=== PATIENT | male | born 1965 | race Caucasian/White ===

== ENCOUNTER 2021-08-25 08:45 | Inpatient (IN) | payer MEDICARE, MEDICAID ==
[~2021-08-25] VITALS: Ht 182.9 cm; Wt 105.0 kg
[~2021-08-25 08:45] MED LIST: ATI1T PO; ATOR20TA PO; BUDE10.24 IH; COU3T PO; DIPH-423 PO; EFAV600T PO; GUAN1TAB PO; LAMI1TAB40 PO; LISI20TA28 PO; LORA1TAB PO; MESA1.2T PO; NIFE-33 PO; OMEP-84 PO; TEN1T CORPAK
[2021-08-25] MEDS ORDERED: diltiazem-NS 100mg/100ml 100 ML IV ONE (09:05)
[2021-08-25] MEDS ORDERED: aspirin 81mg tab.chew PO ONE (09:05)
[2021-08-25] MEDS ORDERED: diltiazem 5mg/ml 5ml inj. IV ONE (09:05)
[2021-08-25] MEDS ORDERED: adenosine 3mg/ml 2ml vial IV ONE ×2 (09:15→09:25)
[2021-08-25] MEDS ORDERED: ondansetron/PF 4mg/2ml inj IV ONE (09:20)
--- NOTE | 2021-08-25 09:21 | NUR ---
Filiberto kennedy per Dr. Tee verbal orders.
--- NOTE | 2021-08-25 09:25 | NUR ---
Patient's left hand above IV site red with small round hives up to wrist, Dr Moya at bedside to assess hand, no additional orders at this time, IV diltiazem drip stopped per MD (see EMAR).
[2021-08-25] MEDS ORDERED: etomidate 2mg/ml inj. IV ONE (09:30)
--- NOTE | 2021-08-25 09:30 | NUR ---
Adenosine 12 mg administered IV once at 0928, Dr. Moya in room during administeration. Radha RN and Tatiana RN administered medication. No change in heart rate, Rate rate 189 beats/min. Dr. Moya gave verbal order to place for etomidate 15 mg IV once for synchronized cardioversion. CPR pads placed per manufacturers specifications at 0900.
--- NOTE | 2021-08-25 09:41 | NUR ---
150 J synchronized cardioversion, charging Shock at 0942 Rate: 61 beats/min Addendum: 08/25/21 at 1007 by NATALIE See intra moderate sedation charting for further procedure information.
[2021-08-25] MEDS ORDERED: LORazepam 2 mg/ml vial IV ONE (09:45)
--- NOTE | 2021-08-25 09:45 | NUR ---
Patient became aggitated and upable to form coherent sentences, just moaning. Patient pulling at lines and thrashing on gurnery. Dr. Moya gave verbal order to administer `1.5 mg IV ativan once now. Unable to obtain a good oxygen saturation on patient due to aggitation. Per RT end tidal at 22. Patient placed on a NRB at 15 L per min. Patient had fought turning himself to the left side stating, "I can't breath". Dr. Moya and Will EMT adjusted patient on zaid to assist with positioning onto back and elevating the head of the bed. Addendum: 08/25/21 at 1015 by NATALIE At time of aggitation patient was pale and had lip cyanosis.
[2021-08-25] MEDS ORDERED: haloperidol lactate 5mg/ml inj IM ONE (09:50)
--- NOTE | 2021-08-25 09:50 | NUR ---
At 0947, Patient was given ativan as prescibed. Patient comfortable appearing at this time, Patients skin is normal/pink, warm and dry. Patient is breathing easily on the NRB at 15L with a oxygen saturdation of 96%. Will continue to monitor patients progress.
[2021-08-25] MEDS ORDERED: normal saline 1000ml 1,000 ML IVB ONE (10:00)
[2021-08-25 10:57] LABS: EOSINOPHILS % (AUTO) 0 % (0-6); LYMPHOCYTES # (AUTO) 0.7 X10'3 (1.1-4.8); MONOCYTES # (AUTO) 0.6 X10'3 (0-0.9)
[2021-08-25 11:02] LABS: BASOPHILS % (AUTO) 0.2 % (0-1); HEMATOCRIT 42.7 % (42.0-52.0); HEMOGLOBIN 13.6 g/dl (14.0-17.9); LYMPHOCYTES % (AUTO) 7.5 % (21-51); MEAN CORPUSCULAR HEMOGLOBIN 32.7 PG (27.0-31.0); MEAN CORPUSCULAR HGB CONC 31.8 g/dL (33.0-36.5); MEAN CORPUSCULAR VOLUME 102.9 FL (78-98); MEAN PLATELET VOLUME 7.5 FL (7.4-10.4); NEUTROPHILS # (AUTO) 7.7 X10'3 (1.8-7.7); NEUTROPHILS % (AUTO) 85.3 % (42-75); PLATELET COUNT 324 X10'3 (140-440); RED BLOOD COUNT 4.15 X10'6 (4.70-6.10); RED CELL DISTRIBUTION WIDTH 14.3 % (11.5-14.5); WHITE BLOOD COUNT 9.1 X10'3 (4.5-11.0)
[2021-08-25 11:51] LABS: ANION GAP 17 (8-16); BLOOD UREA NITROGEN 72 MG/DL (7-18); BUN/CREATININE RATIO 31.9 (5.4-32.0); CALCIUM 8.6 MG/DL (8.5-10.1); CHLORIDE 91 MMOL/L (99-107); CREATININE 2.26 MG/DL (0.60-1.10); GLUCOSE 119 MG/DL (70-104); POTASSIUM 5.4 MMOL/L (3.5-5.1); SODIUM 126 MMOL/L (135-145); TOTAL CARBON DIOXIDE 18.2 MMOL/L (24-32); eGFR 30 ML/MIN
[2021-08-25 11:52] LABS: ALANINE AMINOTRANSFERASE 1112 U/L (12-78); ALBUMIN 3.2 G/DL (3.4-5.0); ALKALINE PHOSPHATASE 76 IU/L (46-116); ASPARTATE AMINO TRANSFERASE 917 U/L (10-37); BILIRUBIN,TOTAL 3.4 MG/DL (0.1-1.0); MAGNESIUM 2.8 MG/DL (1.5-2.4); TOTAL PROTEIN 6.4 G/DL (6.4-8.2)
[2021-08-25] MEDS ORDERED: ondansetron/PF 4mg/2ml inj IV PRN (13:35)
[2021-08-25] MEDS ORDERED: HYDROcodone/acetaminophen 10/325mg tab PO PRN (13:35)
[2021-08-25] MEDS ORDERED: HYDROcodone/acetaminophen 5mg/325mg tablet PO PRN (13:35)
[2021-08-25] MEDS ORDERED: morphine 2 MG/ML inj. syringe IV PRN ×2 (13:35)
[2021-08-25] MEDS ORDERED: magnesium hydroxide 30ml (MOM) UD suspension PO PRN (13:35)
[2021-08-25] MEDS ORDERED: acetaminophen 325mg tablet PO PRN ×2 (13:35)
[2021-08-25] MEDS ORDERED: mag hydrox/Alum hydrox/simeth 30ml oral suspension PO PRN (13:35)
[2021-08-25 13:36] LABS: TROPONIN I 0.08 NG/ML (0.0-0.05)
[2021-08-25] MEDS: furosemide 20 MG/2 ML vial IV SCH ×2 (14:07→20:12)
[2021-08-25 14:09] LABS: D-DIMER 6.52 MG/L FEU (0-0.50)
[2021-08-25] MEDS ORDERED: WARF-55 PO (17:37)
[2021-08-25] MEDS ORDERED: ESCI20TA39 PO (17:37)
[2021-08-25] MEDS ORDERED: AZEL6DRO5 EACHEYE (17:37)
[2021-08-25] MEDS ORDERED: ESCI-8 PO (17:37)
[2021-08-25] MEDS ORDERED: EMTR1TAB18 PO (17:37)
[2021-08-25] MEDS ORDERED: ERGO500056 PO (17:37)
[2021-08-25] MEDS ORDERED: AMLO10TA13 PO (17:37)
[2021-08-25] MEDS ORDERED: DOLU50TA PO (17:37)
[2021-08-25] MEDS ORDERED: ALBU18HF2 IH (17:42)
[2021-08-25] MEDS ORDERED: albuterol 2.5 MG/3 ML nebule NEB PRN (18:00)
--- NOTE | 2021-08-25 18:10 | NUR ---
Dr Paz in to assess patient at this time. Patient arousable to tactile stimulation, no signs of distress noted, answering questions appropriately, calm and cooperative. MD aware INR >8.0, D Dimer 6.52, K 5.4, Creat 2.26, Elevated troponin, BNP 01864. Per MD okay to repeat labs in AM, no other orders at this time.
[2021-08-25] MEDS: EYE EACHEYE SCH (20:00)
[2021-08-25] MEDS: AZELASTINE 0.05% EACHEYE SCH (20:00)
[2021-08-25] MEDS: docusate sod 100mg capsule PO SCH (20:12)
[2021-08-25 20:30] VITALS: BP 144/88
[2021-08-25] MEDS ORDERED: lisinopril 20mg tablet PO SCH (21:00)
[2021-08-25 22:00] VITALS: BP 117/69
[2021-08-25] MEDS ORDERED: furosemide 40mg/4ml inj IV ONE (22:45)
[2021-08-25] MEDS: DOBUTamine-DoBUTrex 500mg/D5W 250 ML IV SCH (23:42)
[2021-08-26] VITALS (10 sets, daily range): BP systolic 83–118; BP diastolic 48–69
--- NOTE | 2021-08-26 06:15 | NUR ---
Patient in room PCU 3024. I have received report from Kaylan PLAZA and had the opportunity to ask questions and assume patient care.
[2021-08-26 06:36] LABS: BASOPHILS % (AUTO) 0.4 % (0-1); EOSINOPHILS % (AUTO) 0.5 % (0-6); HEMATOCRIT 39.2 % (42.0-52.0); HEMOGLOBIN 13.1 g/dl (14.0-17.9); LYMPHOCYTES # (AUTO) 1.3 X10'3 (1.1-4.8); LYMPHOCYTES % (AUTO) 13.6 % (21-51); MEAN CORPUSCULAR HGB CONC 33.4 g/dL (33.0-36.5); MEAN CORPUSCULAR VOLUME 98.8 FL (78-98); MEAN PLATELET VOLUME 6.9 FL (7.4-10.4); MONOCYTES # (AUTO) 0.7 X10'3 (0-0.9); MONOCYTES % (AUTO) 7.3 % (2-12); NEUTROPHILS # (AUTO) 7.4 X10'3 (1.8-7.7); NEUTROPHILS % (AUTO) 78.2 % (42-75); PLATELET COUNT 293 X10'3 (140-440); RED BLOOD COUNT 3.97 X10'6 (4.70-6.10); RED CELL DISTRIBUTION WIDTH 14.2 % (11.5-14.5); WHITE BLOOD COUNT 9.5 X10'3 (4.5-11.0)
[2021-08-26 07:12] LABS: ANION GAP 6 (8-16); BLOOD UREA NITROGEN 53 MG/DL (7-18); BUN/CREATININE RATIO 32.7 (5.4-32.0); CALCIUM 8.2 MG/DL (8.5-10.1); CHLORIDE 96 MMOL/L (99-107); CHOL/HDL RATIO 9.9 (0.00-4.99); CHOLESTEROL 119 MG/DL (0-200); CREATININE 1.62 MG/DL (0.60-1.10); GLUCOSE 81 MG/DL (70-104); HDL CHOLESTEROL 12 MG/DL (35-60); LDL CHOLESTEROL 93 MG/DL (50-100); POTASSIUM 4.1 MMOL/L (3.5-5.1); TOTAL CARBON DIOXIDE 33.6 MMOL/L (24-32); TRIGLYCERIDES 120 MG/DL (20-135); eGFR 44 ML/MIN
[2021-08-26 07:28] LABS: SODIUM 136 MMOL/L (135-145)
[2021-08-26] MEDS: TENOFOVIR ALAFENAMIDE PO SCH (08:00)
[2021-08-26] MEDS: EYE EACHEYE SCH ×2 (08:00→20:00)
[2021-08-26] MEDS: AZELASTINE 0.05% EACHEYE SCH ×2 (08:00→20:00)
[2021-08-26] MEDS ORDERED: losartan 25mg tablet PO SCH (08:00)
[2021-08-26] MEDS ORDERED: enoxaparin 40mg/0.4ml syringe SUBCUT SCH (08:00)
[2021-08-26] MEDS: DOLUTEGRAVIR 50 MG PO SCH (08:00)
[2021-08-26] MEDS: EMTRICITABINE PO SCH (08:00)
[2021-08-26] MEDS ORDERED: carVEDilol 3.125mg tablet PO SCH (08:00)
[2021-08-26] MEDS ORDERED: non-formulary drug (Escitalopram Oxalate 1 TAB) PO SCH (08:00)
[2021-08-26] MEDS ORDERED: amLODIPine 5mg tablet PO SCH (08:00)
[2021-08-26 08:51] LABS: ALANINE AMINOTRANSFERASE 913 U/L (12-78); ALBUMIN/GLOBULIN RATIO 0.9 (1.1-1.5); ALKALINE PHOSPHATASE 73 IU/L (46-116); ASPARTATE AMINO TRANSFERASE 622 U/L (10-37); BILIRUBIN,DIRECT 1.8 MG/DL (0-0.3); BILIRUBIN,TOTAL 3.1 MG/DL (0.1-1.0); TOTAL PROTEIN 6.2 G/DL (6.4-8.2)
[2021-08-26] MEDS: furosemide 20 MG/2 ML vial IV SCH ×2 (09:18→20:00)
[2021-08-26] MEDS: atorvastatin 20mg tablet PO SCH (09:18)
[2021-08-26] MEDS: pantoprazole 40mg Tablet.DR PO SCH (09:19)
[2021-08-26] MEDS: ESCITALOPRAM OXALATE 5 MG TABLET PO SCH (09:19)
[2021-08-26] MEDS: docusate sod 100mg capsule PO SCH ×2 (09:31→19:52)
[2021-08-26] MEDS: potassium chloride 10mEq ER tablet PO SCH ×2 (10:42→19:52)
[2021-08-26] MEDS ORDERED: magnesium Cl slow-release 64mg tablet PO PRN (10:50)
[2021-08-26] MEDS ORDERED: potassium Cl 40MEQ/1/2NS 520ml 520 ML IV PRN (10:50)
[2021-08-26] MEDS ORDERED: potassium Cl 20 mEq SR tablet PO PRN ×2 (10:50)
[2021-08-26] MEDS ORDERED: magnesium 4gm in 100ml NS 100 ML IV PRN (10:50)
[2021-08-26] MEDS: losartan 25mg tablet PO SCH (12:00)
[2021-08-26] MEDS ORDERED: phytonadione 10 MG/1 ML amp PO ONE (14:15)
--- NOTE | 2021-08-26 16:43 | NUR ---
PATIENT'S FRIEND DID NOT BRING IN PATIENT'S AM HOME MEDICATIONS; HOWEVER, DID BRING IN PATIENT'S METHADONE.PATIENT'S METHADONE STORED IN PHARMACY. Addendum: 08/26/21 at 1646 by Lisa Castillo RN Amended: Links added.
[2021-08-26] MEDS: carVEDilol 3.125mg tablet PO SCH (20:00)
[2021-08-26] MEDS: K and/or MAG REPLACEMENT MC SCH (20:00)
--- NOTE | 2021-08-26 20:05 | NUR ---
HR: 57, SBP: 87. IV Lasix dose and Coreg PO held. notified of this.
--- NOTE | 2021-08-26 20:46 | NUR ---
NOTIFIED MD OF PATIENT INR RESULT OF <8.
[2021-08-26] MEDS ORDERED: warfarin 10mg tablet PO SCH (21:00)
[2021-08-27] VITALS (28 sets, daily range): BP systolic 93–141; BP diastolic 53–102
[2021-08-27] MEDS: DOBUTamine-DoBUTrex 500mg/D5W 250 ML IV SCH (01:30)
[2021-08-27 01:41] LABS: URINE AMPHETAMINE SCREEN NEGATIVE (Neg); URINE BARBITUATE SCREEN NEGATIVE (Neg); URINE BENZODIAZEPINES SCREEN NEGATIVE (Neg); URINE CANNABINOID SCREEN POSITIVE (Neg); URINE COCAINE SCREEN NEGATIVE (Neg); URINE METHADONE SCREEN POSITIVE (Neg); URINE OPIATE SCREEN NEGATIVE (Neg); URINE PHENCYCLIDINE SCREEN NEGATIVE (Neg)
--- NOTE | 2021-08-27 06:04 | NUR ---
Plasma started @ 0455. No signs of distress noted at this time.
[2021-08-27 06:25] LABS: ALBUMIN 2.8 G/DL (3.4-5.0); ANION GAP 1 (8-16); BLOOD UREA NITROGEN 38 MG/DL (7-18); BUN/CREATININE RATIO 31.7 (5.4-32.0); CALCIUM 8.2 MG/DL (8.5-10.1); CHLORIDE 98 MMOL/L (99-107); GLUCOSE 114 MG/DL (70-104); SODIUM 133 MMOL/L (135-145); TOTAL CARBON DIOXIDE 33.8 MMOL/L (24-32); eGFR 62 ML/MIN
[2021-08-27 06:43] LABS: BASOPHILS % (AUTO) 0.1 % (0-1); EOSINOPHILS # (AUTO) 0.1 X10'3 (0-0.9); EOSINOPHILS % (AUTO) 1.1 % (0-6); HEMATOCRIT 38.4 % (42.0-52.0); HEMOGLOBIN 12.3 g/dl (14.0-17.9); LYMPHOCYTES # (AUTO) 0.9 X10'3 (1.1-4.8); LYMPHOCYTES % (AUTO) 15.7 % (21-51); MEAN CORPUSCULAR HEMOGLOBIN 32.4 PG (27.0-31.0); MEAN CORPUSCULAR HGB CONC 31.9 g/dL (33.0-36.5); MEAN CORPUSCULAR VOLUME 101.5 FL (78-98); MONOCYTES # (AUTO) 0.5 X10'3 (0-0.9); MONOCYTES % (AUTO) 8.2 % (2-12); NEUTROPHILS # (AUTO) 4.2 X10'3 (1.8-7.7); NEUTROPHILS % (AUTO) 74.9 % (42-75); PLATELET COUNT 267 X10'3 (140-440); RED BLOOD COUNT 3.79 X10'6 (4.70-6.10); RED CELL DISTRIBUTION WIDTH 14.2 % (11.5-14.5); WHITE BLOOD COUNT 5.6 X10'3 (4.5-11.0)
--- NOTE | 2021-08-27 06:44 | NUR ---
CALL LIGHT PLACED WITHIN REACH. UPDATED AM NURSE ABOUT INFUSING PLASMA AND COMPLETION OF VITAL SIGNS. NO SIGNS OF DISTRESS NOTED. VSS THROUGHOUT SHIFT. INSTRUCTED TO CALL FOR ASSISTANCE. WILL CONTINUE TO MONITOR.
[2021-08-27] MEDS ORDERED: phytonadione inj. 5 MG in normal saline 100ml IV soln 100 ML IV ONE (07:25)
[2021-08-27] MEDS: K and/or MAG REPLACEMENT MC SCH ×2 (08:00→20:00)
[2021-08-27] MEDS: EMTRICITABINE PO SCH (08:00)
[2021-08-27] MEDS: TENOFOVIR ALAFENAMIDE PO SCH (08:00)
[2021-08-27] MEDS: furosemide 20 MG/2 ML vial IV SCH ×2 (08:00→20:30)
[2021-08-27] MEDS: potassium chloride 10mEq ER tablet PO SCH ×2 (08:00→20:31)
[2021-08-27] MEDS: pantoprazole 40mg Tablet.DR PO SCH (08:00)
[2021-08-27] MEDS: EYE EACHEYE SCH ×2 (08:00→20:00)
[2021-08-27] MEDS: DOLUTEGRAVIR 50 MG PO SCH (08:00)
[2021-08-27] MEDS: AZELASTINE 0.05% EACHEYE SCH ×2 (08:00→20:00)
[2021-08-27] MEDS: ESCITALOPRAM OXALATE 5 MG TABLET PO SCH (10:17)
[2021-08-27] MEDS: docusate sod 100mg capsule PO SCH ×2 (10:18→20:33)
[2021-08-27] MEDS: atorvastatin 20mg tablet PO SCH (10:18)
[2021-08-27] MEDS: carVEDilol 3.125mg tablet PO SCH (10:20)
[2021-08-27] MEDS ORDERED: LIDOcaine/PRILOcaine 5gm cream TP ONE (11:10)
[2021-08-27] MEDS: losartan 25mg tablet PO SCH (12:00)
[2021-08-27] MEDS ORDERED: methadone 10mg tablet PO ONE (13:35)
[2021-08-27] MEDS ORDERED: nitroGLYCERIN-Tridil 50MG/D5W 250 ML IV ONE (15:09)
[2021-08-27] MEDS ORDERED: verapamil 2.5 mg/ml inj IV ONE (15:10)
[2021-08-27] MEDS ORDERED: fentaNYL/PF 50MCG/1 ML 2ML syringe ONE (15:10)
[2021-08-27] MEDS ORDERED: midazolam 1 mg/ML 2ml injection ONE (15:10)
[2021-08-27] MEDS ORDERED: iohexol 350 MG/ML 50ML vial IV ONE (15:10)
[2021-08-27] MEDS ORDERED: iohexol 350MG/ML 100ml bottle IV ONE (15:10)
[2021-08-27] MEDS ORDERED: heparin 1,000unit/ml 10ml vial 10 ML ONE (15:10)
[2021-08-27] MEDS ORDERED: LIDOcaine 1% (10mg/ml)w/preservative injection 20ml MDV ONE (15:11)
[2021-08-27] MEDS ORDERED: heparin 1,000 UNITS/NS 500ml 500 ML ONE (15:56)
[2021-08-27] MEDS ORDERED: heparin 25,000 UNIT/250ml bag 250 ML IV ONE (16:11)
[2021-08-27] MEDS ORDERED: iohexol 350 MG/1 ML 200ml bottle ONE (16:13)
[2021-08-27] MEDS ORDERED: DOPamine 400mg/D5W 250ml 250 ML IV ONE (16:22)
[2021-08-27] MEDS ORDERED: clopidogrel 300mg tablet ONE (16:36)
[2021-08-27] MEDS ORDERED: heparin 10,000 units/1 ML INJ IV ONE (17:10)
[2021-08-27] MEDS ORDERED: heparin 25,000 UNIT/250ml bag 250 ML IV SCH (17:10)
[2021-08-27] MEDS ORDERED: heparin 10,000 units/1 ML INJ IV PRN (17:10)
[2021-08-27 17:39] LABS: HEMOGLOBIN 12.2 g/dl (14.0-17.9); WHITE BLOOD COUNT 5.7 X10'3 (4.5-11.0)
[2021-08-27 17:41] LABS: BASOPHILS % (AUTO) 0.2 % (0-1); EOSINOPHILS # (AUTO) 0.1 X10'3 (0-0.9); EOSINOPHILS % (AUTO) 1.5 % (0-6); HEMATOCRIT 37.8 % (42.0-52.0); LYMPHOCYTES # (AUTO) 0.9 X10'3 (1.1-4.8); LYMPHOCYTES % (AUTO) 15.6 % (21-51); MEAN CORPUSCULAR HEMOGLOBIN 32.6 PG (27.0-31.0); MEAN CORPUSCULAR HGB CONC 32.3 g/dL (33.0-36.5); MEAN CORPUSCULAR VOLUME 100.8 FL (78-98); MONOCYTES # (AUTO) 0.6 X10'3 (0-0.9); MONOCYTES % (AUTO) 9.7 % (2-12); NEUTROPHILS # (AUTO) 4.2 X10'3 (1.8-7.7); PLATELET COUNT 269 X10'3 (140-440); RED BLOOD COUNT 3.75 X10'6 (4.70-6.10); RED CELL DISTRIBUTION WIDTH 14.6 % (11.5-14.5)
[2021-08-27] MEDS ORDERED: aspirin 81mg, enteric-coated 1 TAB TABLET.DR PO ONE (18:00)
[2021-08-27 18:03] LABS: PARTIAL THROMBOPLASTIN TIME 113 SECONDS (22-32)
[2021-08-27] MEDS ORDERED: carVEDilol 3.125mg tablet PO SCH (20:00)
[2021-08-27] MEDS ORDERED: warfarin 5mg tablet PO ONE (21:00)
[2021-08-28] VITALS (17 sets, daily range): BP systolic 102–153; BP diastolic 45–107
[2021-08-28] MEDS: DOBUTamine-DoBUTrex 500mg/D5W 250 ML IV SCH ×2 (00:31→16:42)
--- NOTE | 2021-08-28 04:29 | NUR ---
Heparin drip D/c @ 2000 per MD order.
--- NOTE | 2021-08-28 04:38 | NUR ---
Spoke with patient regarding home medication regimen. Patient states he wants to continue his home medication regimen. Notified patient nurse will pass message to AM nurse.
[2021-08-28 05:54] LABS: BASOPHILS % (AUTO) 0.2 % (0-1); EOSINOPHILS # (AUTO) 0.1 X10'3 (0-0.9); EOSINOPHILS % (AUTO) 1.9 % (0-6); HEMATOCRIT 37.2 % (42.0-52.0); HEMOGLOBIN 12.1 g/dl (14.0-17.9); LYMPHOCYTES % (AUTO) 19.7 % (21-51); MEAN CORPUSCULAR HEMOGLOBIN 32.4 PG (27.0-31.0); MEAN CORPUSCULAR HGB CONC 32.4 g/dL (33.0-36.5); MEAN PLATELET VOLUME 6.7 FL (7.4-10.4); MONOCYTES # (AUTO) 0.5 X10'3 (0-0.9); MONOCYTES % (AUTO) 11.1 % (2-12); NEUTROPHILS # (AUTO) 3.2 X10'3 (1.8-7.7); NEUTROPHILS % (AUTO) 67.1 % (42-75); PLATELET COUNT 261 X10'3 (140-440); RED BLOOD COUNT 3.72 X10'6 (4.70-6.10); RED CELL DISTRIBUTION WIDTH 14.3 % (11.5-14.5); WHITE BLOOD COUNT 4.8 X10'3 (4.5-11.0)
[2021-08-28 06:40] LABS: ALBUMIN 2.9 G/DL (3.4-5.0); ANION GAP 5 (8-16); BLOOD UREA NITROGEN 24 MG/DL (7-18); BUN/CREATININE RATIO 25.3 (5.4-32.0); CALCIUM 8.3 MG/DL (8.5-10.1); CHLORIDE 98 MMOL/L (99-107); CHOL/HDL RATIO 5.5 (0.00-4.99); CHOLESTEROL 99 MG/DL (0-200); CREATININE 0.95 MG/DL (0.60-1.10); GLUCOSE 91 MG/DL (70-104); HDL CHOLESTEROL 18 MG/DL (35-60); LDL CHOLESTEROL 74 MG/DL (50-100); POTASSIUM 4.5 MMOL/L (3.5-5.1); SODIUM 136 MMOL/L (135-145); TOTAL CARBON DIOXIDE 32.7 MMOL/L (24-32); TRIGLYCERIDES 95 MG/DL (20-135); eGFR 82 ML/MIN
--- NOTE | 2021-08-28 06:51 | NUR ---
SURGICAL INCISION TO R RADIAL AND GROIN CLEAN DRY AND INTACT. PULSES STRONG BILATERALLY. NO S/S OF INFECTION.
[2021-08-28] MEDS ORDERED: aspirin 81mg, enteric-coated 1 TAB TABLET.DR PO SCH (08:00)
[2021-08-28] MEDS: K and/or MAG REPLACEMENT MC SCH ×2 (08:00→20:00)
[2021-08-28] MEDS: AZELASTINE 0.05% EACHEYE SCH ×2 (08:00→20:00)
[2021-08-28] MEDS: EYE EACHEYE SCH ×2 (08:00→20:00)
[2021-08-28] MEDS ORDERED: aspirin 81mg tab.chew PO ONE (08:02)
[2021-08-28] MEDS ORDERED: clopidogrel 75mg tablet PO SCH (08:03)
[2021-08-28] MEDS ORDERED: DOBUTamine 2000 MCG/250ML BAG IV SCH (08:05)
--- NOTE | 2021-08-28 08:47 | NUR ---
Page to EKG 3028F Standing. Pt needs EKG post cardiac cath. Thank lew Miles [phone]
[2021-08-28] MEDS ORDERED: carVEDilol 3.125mg tablet PO SCH (10:00)
[2021-08-28] MEDS ORDERED: carVEDilol 3.125mg tablet PO ONE (10:00)
[2021-08-28] MEDS: docusate sod 100mg capsule PO SCH ×2 (10:06→20:00)
[2021-08-28] MEDS: furosemide 20 MG/2 ML vial IV SCH ×2 (10:07→20:11)
[2021-08-28] MEDS: atorvastatin 20mg tablet PO SCH (10:09)
[2021-08-28] MEDS: potassium chloride 10mEq ER tablet PO SCH ×2 (10:09→20:00)
[2021-08-28] MEDS: clopidogrel 75mg tablet PO SCH (10:10)
[2021-08-28] MEDS: EMTRICITABINE PO SCH (10:11)
[2021-08-28] MEDS: TENOFOVIR ALAFENAMIDE PO SCH (10:11)
[2021-08-28] MEDS: DOLUTEGRAVIR 50 MG PO SCH (10:11)
[2021-08-28] MEDS: ESCITALOPRAM OXALATE 5 MG TABLET PO SCH (10:11)
[2021-08-28] MEDS: pantoprazole 40mg Tablet.DR PO SCH (12:31)
[2021-08-28] MEDS: losartan 25mg tablet PO SCH (12:32)
--- NOTE | 2021-08-28 12:47 | NUR ---
Paged regarding patients home medication Page Sent promotional table spacer PAGER ID: [phone] MESSAGE: Room 3024B, Micheal Barbour. 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 RX is in Pharmacy. Patient would like to take daily med here, concerned about withdrawals. Chelsey/Ginger [phone]
[2021-08-28] MEDS ORDERED: methadone 10mg tablet PO SCH (13:45)
[2021-08-28] MEDS ORDERED: METH10SO PO (16:27)
[2021-08-28] MEDS: enoxaparin 40mg/0.4ml syringe SQ SCH (16:43)
[2021-08-28] MEDS: METHADONE HCL 100 MG PO SCH (16:44)
--- NOTE | 2021-08-28 17:32 | NUR ---
left message with roseanna answering service regarding decreasing dobutamine
--- NOTE | 2021-08-28 17:38 | NUR ---
I received a telephone order to Decrease the dobutamine gtt from 5 mcg to 3 mcg/hr and then to stop it in the morning.
--- NOTE | 2021-08-28 17:48 | NUR ---
[place] documentation: I have reviewed and agree with all interventions, assessments performed and documented by Chelsey PLAZA. [place] Medication Administration: For this medication-pass time frame, all medication were reviewed, dispensed, administered and documented per hospital policy by Chelsey PLAZA.
[2021-08-28] MEDS ORDERED: DOBUTamine-DoBUTrex 500mg/D5W 250 ML IV SCH (18:10)
--- NOTE | 2021-08-28 18:19 | NUR ---
Problems reprioritized. Patient report given, questions answered & plan of care reviewed with Radha RN. Patient stable at this time
[2021-08-28] MEDS: carvedilol 6.25mg tablet PO SCH (20:11)
[2021-08-28] MEDS ORDERED: warfarin 7.5mg tablet PO ONE (21:00)
[2021-08-29] VITALS (8 sets, daily range): BP systolic 112–132; BP diastolic 73–84
[2021-08-29 06:12] LABS: BASOPHILS % (AUTO) 0.6 % (0-1); EOSINOPHILS # (AUTO) 0.2 X10'3 (0-0.9); EOSINOPHILS % (AUTO) 2.9 % (0-6); LYMPHOCYTES # (AUTO) 1.2 X10'3 (1.1-4.8); LYMPHOCYTES % (AUTO) 22.3 % (21-51); MEAN CORPUSCULAR HEMOGLOBIN 32.6 PG (27.0-31.0); MEAN CORPUSCULAR HGB CONC 32.5 g/dL (33.0-36.5); MEAN CORPUSCULAR VOLUME 100.3 FL (78-98); MEAN PLATELET VOLUME 6.8 FL (7.4-10.4); MONOCYTES # (AUTO) 0.7 X10'3 (0-0.9); MONOCYTES % (AUTO) 14.1 % (2-12); NEUTROPHILS # (AUTO) 3.2 X10'3 (1.8-7.7); NEUTROPHILS % (AUTO) 60.1 % (42-75); PLATELET COUNT 260 X10'3 (140-440); RED BLOOD COUNT 3.99 X10'6 (4.70-6.10); RED CELL DISTRIBUTION WIDTH 14.5 % (11.5-14.5); WHITE BLOOD COUNT 5.3 X10'3 (4.5-11.0)
--- NOTE | 2021-08-29 06:23 | NUR ---
Patient in room PCU 3024. I have received report from Radha PLAZA and had the opportunity to ask questions and assume patient care.
--- NOTE | 2021-08-29 06:35 | NUR ---
NO SIGNS OF DISTRESS NOTED. PATIENT AWARE OF PLAN OF CARE. DOBUTAMINE DRIP CONTINUED PER ORDER. VSS THROUGHOUT SHIFT. CALL LIGHT PLACED WITHIN REACH. AM NURSE GIVEN REPORT.
[2021-08-29 06:41] LABS: ANION GAP 5 (8-16); BLOOD UREA NITROGEN 19 MG/DL (7-18); BUN/CREATININE RATIO 19.2 (5.4-32.0); CALCIUM 9.1 MG/DL (8.5-10.1); CHLORIDE 100 MMOL/L (99-107); CREATININE 0.99 MG/DL (0.60-1.10); GLUCOSE 101 MG/DL (70-104); POTASSIUM 4.4 MMOL/L (3.5-5.1); SODIUM 140 MMOL/L (135-145); TOTAL CARBON DIOXIDE 35.3 MMOL/L (24-32); eGFR 78 ML/MIN
[2021-08-29] MEDS: AZELASTINE 0.05% EACHEYE SCH (08:00)
[2021-08-29] MEDS: K and/or MAG REPLACEMENT MC SCH (08:00)
[2021-08-29] MEDS ORDERED: aspirin 325mg tablet, delayed-release (Ecotrin) PO SCH (08:00)
[2021-08-29] MEDS: EYE EACHEYE SCH (08:00)
[2021-08-29] MEDS: ESCITALOPRAM OXALATE 5 MG TABLET PO SCH (08:35)
[2021-08-29] MEDS: docusate sod 100mg capsule PO SCH (08:36)
[2021-08-29] MEDS: clopidogrel 75mg tablet PO SCH (08:36)
[2021-08-29] MEDS: atorvastatin 20mg tablet PO SCH (08:36)
[2021-08-29] MEDS: carvedilol 6.25mg tablet PO SCH (08:36)
[2021-08-29] MEDS: furosemide 20 MG/2 ML vial IV SCH (08:36)
[2021-08-29] MEDS: enoxaparin 40mg/0.4ml syringe SQ SCH (08:37)
[2021-08-29] MEDS: EMTRICITABINE PO SCH (08:38)
[2021-08-29] MEDS: DOLUTEGRAVIR 50 MG PO SCH (08:38)
[2021-08-29] MEDS: TENOFOVIR ALAFENAMIDE PO SCH (08:38)
[2021-08-29] MEDS: pantoprazole 40mg Tablet.DR PO SCH (08:41)
[2021-08-29] MEDS: potassium chloride 10mEq ER tablet PO SCH (08:41)
[2021-08-29] MEDS: METHADONE HCL 100 MG PO SCH (08:52)
[2021-08-29] MEDS ORDERED: CLOP75TA34 PO (10:15)
[2021-08-29] MEDS ORDERED: ASPI-1071 PO (10:15)
[2021-08-29] MEDS ORDERED: FURO-150 PO (10:15)
--- NOTE | 2021-08-29 12:33 | NUR ---
Patient in room PCU 3024. I have received report from Radha and had the opportunity to ask questions and assume patient care. Patient is resting comfortably in bed, discussed POC, and all needs are met at this time.
--- NOTE | 2021-08-29 16:05 | NUR ---
Patient discharged. Patient was released to his son. Reviewed all discharge instructions, medications and side effects. Patients home meds, methadone, were returned at discharge. Two PIV's were removed prior to discharge with canula's intact. Patient was wearing lifevest and was educated about why he needs to continue to wear it after discharge. Patient took all belongings and was alert and oriented at time of discharge.
[2021-08-29] MEDS ORDERED: warfarin 10mg tablet PO ONE (21:00)
== END 2021-08-29 15:41 | disposition home or self-care (01) | DRG 246 ==
LOC: ER 08:46 → ED HOLD 13:38 → EDBEDREQ 19:32 → PCU 3S 20:30
PROVIDERS: ADMIT Internal Medicine; ATTEND Internal Medicine
PROC: 5A2204Z Restoration of Cardiac Rhythm, Single (ICD-10-PCS; 2021-08-25)
PROC: 4A023N7 Measurement of Cardiac Sampling and Pressure, Left Heart, Percutaneous Approach (ICD-10-PCS; principal; 2021-08-27)
PROC: 027034Z Dilation of Coronary Artery, One Artery with Drug-eluting Intraluminal Device, Percutaneous Approach (ICD-10-PCS; 2021-08-27)
PROC: B2111ZZ Fluoroscopy of Multiple Coronary Arteries using Low Osmolar Contrast (ICD-10-PCS; 2021-08-27)
PROC: B2151ZZ Fluoroscopy of Left Heart using Low Osmolar Contrast (ICD-10-PCS; 2021-08-27)
PROC: 30233K1 Transfusion of Nonautologous Frozen Plasma into Peripheral Vein, Percutaneous Approach (ICD-10-PCS; 2021-08-27)
DX: I21.4 Non-ST elevation (NSTEMI) myocardial infarction (principal); I50.23 Acute on chronic systolic (congestive) heart failure; N17.0 Acute kidney failure with tubular necrosis; I47.1 Supraventricular tachycardia; E87.1 Hypo-osmolality and hyponatremia; I42.0 Dilated cardiomyopathy; I13.0 Hypertensive heart and chronic kidney disease with heart failure and stage 1 through stage 4 chronic kidney disease, or unspecified chronic kidney disease; I47.2 Ventricular tachycardia; J44.9 Chronic obstructive pulmonary disease, unspecified; R79.1 Abnormal coagulation profile; T45.515A Adverse effect of anticoagulants, initial encounter; R74.01 Elevation of levels of liver transaminase levels; I95.9 Hypotension, unspecified; E66.9 Obesity, unspecified; I25.10 Atherosclerotic heart disease of native coronary artery without angina pectoris; R45.1 Restlessness and agitation; I67.1 Cerebral aneurysm, nonruptured; R79.89 Other specified abnormal findings of blood chemistry; N18.9 Chronic kidney disease, unspecified; Z21 Asymptomatic human immunodeficiency virus [HIV] infection status; E78.5 Hyperlipidemia, unspecified; E87.5 Hyperkalemia; F41.8 Other specified anxiety disorders; Y92.89 Other specified places as the place of occurrence of the external cause; Z86.711 Personal history of pulmonary embolism; Z86.718 Personal history of other venous thrombosis and embolism; Z87.891 Personal history of nicotine dependence; Z78.1 Physical restraint status; Z68.31 Body mass index [BMI] 31.0-31.9, adult; Z79.82 Long term (current) use of aspirin
CPT/HCPCS: 93306; 93458; 96361; 96365; 96375; 96376; 99291; C9600; 36415; 36430; 70450; 71045; 76937; 80048; 80053; 80061; 80076; 80305; 83735; 83880; 84484; 85025; 85347; 85379; 85610; 85730; 86885; 86900; 86901; 87081; 93005; 94799; 99152; 99153; A4620; A6258; C1725; C1751; C1769; C1874; C1894; G0378; J0153; J1250; J1265; J1644; J1650; J1940; J2001; J2060; J2250; J2405; J3010; J3430; J3490; J7030; P9059; Q9967